=== PATIENT | male | born 1965 | race Caucasian/White ===

== ENCOUNTER 2018-09-13 17:11 | Emergency (ER) | payer OTHER ==
[~2018-09-13] VITALS: Ht 172.7 cm; Wt 72.6 kg
[2018-09-13] MEDS ORDERED: IBUPROFEN 600600 M1 PO (18:57)
[2018-09-13] MEDS ORDERED: TRAMADOL 50 MG50 MG PO (18:57)
[2018-09-13 19:23] VITALS: BP 144/96
== END 2018-09-13 19:29 | disposition home or self-care (01) ==
LOC: M.ERS 17:11
DX: S92.422A Displaced fracture of distal phalanx of left great toe, initial encounter for closed fracture (principal); Z90.89 Acquired absence of other organs; W22.8XXA Striking against or struck by other objects, initial encounter; Y93.89 Activity, other specified; Y92.89 Other specified places as the place of occurrence of the external cause; Y99.8 Other external cause status

== ENCOUNTER 2019-02-07 23:14 | Emergency (ER) | payer OTHER ==
[~2019-02-07] VITALS: Ht 172.7 cm; Wt 72.6 kg
[~2019-02-07 23:14] MED LIST: IBUPROFEN 600600 M1 PO; TRAMADOL 50 MG50 MG PO
[2019-02-07 23:21] VITALS: BP 149/93
== END 2019-02-07 23:52 | disposition home or self-care (01) ==
LOC: M.ERS 23:14
DX: M79.672 Pain in left foot (principal); Z90.89 Acquired absence of other organs